=== PATIENT | male | born 1970 | race Caucasian/White ===

== ENCOUNTER 2016-11-30 08:28 | Emergency (ER) | payer SELFPAY ==
[~2016-11-30] VITALS: Ht 180.3 cm; Wt 118.0 kg
[~2016-11-30 08:28] MED LIST: BACT2OIN TOP; BACT800T5 PO; CEPH500T PO
[2016-11-30 08:30] VITALS: BP 120/80; PULSE 80; RESP 18; TEMP 97.9; O2SAT 98
--- NOTE | 2016-11-30 09:02 | PD ---
HPI . Sores on his leg Chief Complaint: Skin Problem Time Seen by Provider: 08:50 Travel History International Travel<30 days: No Contact w/Intl Traveler<30days: No Traveled to known affect area: No History of Present Illness HPI Patient presents with sores on his right evlázquez since about June. He states that he is here today because of pain. He was seen here in June and given prescriptions for Keflex and Septra. He was able to have the Septra filled because it was free at [facility]. He had planned to give the Keflex filled the following day but the prescription was inadvertently washed in his pants. So he only took the Septra. Nonetheless, the lesions improved. However, he has had some persistent lesions on the right velázquez that are not improving. He has never followed up with a primary care physician. He denies any associated fever. He does complain with associated pain. There is some clear drainage from the wounds. PFSH Past Medical History Asthma: Yes Anxiety: Yes Depression: Yes Heart Rhythm Problems: No Cardiac Catheterization: No Cardiovascular Problems: No High Cholesterol: No Congestive Heart Failure: No Diabetes: No Diminished Hearing: No Hypertension: No Psychiatric: Yes Immunizations Current: Yes Myocardial Infarction: No Tetanus Vaccination: < 5 Years Past Surgical History Surgical History: No Previous Surgery Coronary Artery Bypass Graft: No Social History Alcohol Use: No Tobacco Use: Yes (2 PPD) Substance Use: No Allergies-Medications (Allergen,Severity, Reaction): Coded Allergies: No Known Allergies (Verified , 11/30/16) Reported Meds & Prescriptions Reported Meds & Active Scripts Active Ultram (Tramadol HCl) 50 Mg Tab 50 Mg PO Q4H PRN Ibuprofen 800 Mg Tab 800 Mg PO Q8H PRN Keflex (Cephalexin) 500 Mg Cap 500 Mg PO Q8H Bactrim DS (Sulfamethoxazole-Trimethoprim) 800-160 Mg Tab 1 Tab PO BID Review of Systems Except as stated in HPI: all other systems reviewed are Neg General / Constitutional: No: Fever, Chills Musculoskeletal: Positive: Pain Skin: Positive Lesions Physical Exam Narrative GENERAL: Awake and alert and in no acute distress. SKIN: Warm and dry. He has several scabbed lesions on the right anterior velázquez. They are about the size of a lalo. There is some serous fluid draining through and around the scabs. They are tender. There is some mild erythema. No significant swelling. There is no fluctuance. CARDIOVASCULAR: Regular rate and rhythm. RESPIRATORY: No accessory muscle use. MUSCULOSKELETAL: No obvious deformities. No edema. NEUROLOGICAL: Awake and alert. No obvious cranial nerve deficits. Motor grossly within normal limits. Normal speech. PSYCHIATRIC: Appropriate mood and affect; insight and judgment normal. Data Data Last Documented VS Vital Signs Date Time Temp Pulse Resp B/P Pulse Ox O2 Delivery O2 Flow Rate FiO2 11/30/16 08:30 97.9 80 18 120/80 98 Orders Bedside Glucose SHANTAL.AC&HS (11/30/16 09:02) Sulfamet-Trimeth Ds 800-160 Mg (Bactrim (11/30/16 09:15) Cephalexin (Keflex) (11/30/16 09:15) MDM Medical Decision Making Medical Screen Exam Complete: Yes Emergency Medical Condition: Yes Medical Record Reviewed: Yes (patient was seen here in June for the same lesions. He was given prescriptions for Septra, Keflex and Bactroban. He has not followed up since that time.) Differential Diagnosis The differential diagnosis of the skin rash includes but is not limited to allergic urticaria, scabies, insect bites, contact dermatitis Narrative Course Patient presents with persistent lesions on his right lower extremity. I will check a fingerstick blood sugar. I plan to [facility]. I will re- prescribe Keflex and Bactrim. FSBS = 98 Diagnosis Primary Impression: Folliculitis Additional Impression: Excoriation Referrals: [facility] 3 days Additional Instructions: Wash the wounds twice daily with soap and water. Soaking the leg in warm Epsom salt and water would be good. Take antibiotics as prescribed. Follow-up in the wound care clinic this week. Med/Other Pt SpecificInfo: Prescription(s) given Scripts Tramadol (Ultram)50 Mg Tab50 Mg PO Q4H PRN (PAIN) #12 TAB Ref 0 Prov:Iqra France MD 11/30/16 Ibuprofen 800 Mg [id number] Mg PO Q8H PRN (pain) #30 TAB Ref 0 Prov:Iqra France MD 11/30/16 Cephalexin (Keflex)500 Mg [id number] Mg PO Q8H #30 CAP Ref 0 Prov:Iqra France MD 11/30/16 Sulfamethoxazole-Trimethoprim (Bactrim DS)800-160 Mg Tab1 Tab PO BID #20 TAB Ref 0 Prov:Iqra France MD 11/30/16 Disposition: 01 DISCHARGE HOME Condition: Stable Iqra France MD Nov 30, 2016 09:02
[2016-11-30] MEDS ORDERED: CEPH-460 PO (09:10)
[2016-11-30] MEDS ORDERED: IBUP800T23 PO (09:10)
[2016-11-30] MEDS ORDERED: BACT800T5 PO (09:10)
[2016-11-30] MEDS ORDERED: ULTR50TA5 PO (09:10)
[2016-11-30] MEDS ORDERED: CEPHALEXIN MONOHYDRATE 500 MG CAP PO ONE (09:15)
[2016-11-30] MEDS ORDERED: SULFAMETHOXAZOLE-TRIMETHOPRIM DS 800-160 MG TAB PO ONE (09:15)
== END 2016-11-30 09:38 | disposition home or self-care (01) ==
LOC: PHED 08:28
DX: L73.9 Follicular disorder, unspecified (principal); F42.4 Excoriation (skin-picking) disorder; J45.909 Unspecified asthma, uncomplicated; F17.210 Nicotine dependence, cigarettes, uncomplicated
CPT/HCPCS: 99282